=== PATIENT | female | born 1985 | race Caucasian/White ===

== ENCOUNTER 2020-12-23 20:22 | Emergency (ER) | payer OTHER ==
[2020-12-23] MEDS ORDERED: Lidocaine 1% (PF) 30 ML VIAL ONE (23:13)
[2020-12-24] MEDS ORDERED: Bacitracin 1 PK ONE (00:06)
== END 2020-12-24 00:07 | disposition home or self-care (01) ==
LOC: CSHERS 20:22
DX: S61.210A Laceration without foreign body of right index finger without damage to nail, initial encounter (principal); F17.290 Nicotine dependence, other tobacco product, uncomplicated; W26.0XXA Contact with knife, initial encounter
CPT/HCPCS: 12011; J2001

== ENCOUNTER 2022-02-13 16:13 | Emergency (ER) | payer OTHER ==
[2022-02-13] MEDS ORDERED: Boostrix 0.5 ML (Tdap) VIAL (>/=7 yrs of age) ONE (16:59)
[2022-02-13] MEDS ORDERED: Acetaminophen 500 MG TAB ONE (16:59)
[2022-02-13] MEDS ORDERED: Dexamethasone 10 MG/ML VIAL ONE (17:44)
[2022-02-13] MEDS ORDERED: Ventolin HFA Inhaler 60 PUFF INHALER ONE (17:44)
== END 2022-02-13 18:15 | disposition home or self-care (01) ==
LOC: CSHERS 16:13
DX: J01.90 Acute sinusitis, unspecified (principal)
CPT/HCPCS: 71046; 87804; 90715; J1100

== ENCOUNTER 2024-04-04 05:34 | Emergency (ER) | payer MEDICAID, SELFPAY ==
[2024-04-04] MEDS ORDERED: HYDROcodone/Acetaminophen 5/325 mg Tablet ONE (05:55)
[2024-04-04] MEDS ORDERED: Amoxicillin/Potassium Clav 875 MG TAB ONE (05:56)
== END 2024-04-04 06:29 | disposition home or self-care (01) ==
LOC: CSHERS 05:34
DX: K04.7 Periapical abscess without sinus (principal); F17.290 Nicotine dependence, other tobacco product, uncomplicated
CPT/HCPCS: 99282